=== PATIENT | female | born 1990 | race Caucasian/White ===

== ENCOUNTER 2023-04-19 15:22 | Outpatient (REF) | payer OTHER, SELFPAY | END 2023-04-19 15:23 | disposition home or self-care (01) | LOC: HO.SH 15:22 | PROVIDERS: Visit Provider Student in an Organized Health Care Education/Training Program | DX: Z01.10 Encounter for examination of ears and hearing without abnormal findings (principal); H93.293 Other abnormal auditory perceptions, bilateral | CPT/HCPCS: 92552; 92556; 92567; 92588; 92700 ==